=== PATIENT | female | born 1995 | race Caucasian/White ===

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

== ENCOUNTER → 2021-06-01 | Outpatient (CLI) | payer BC ==
[~2021-06-01] MED LIST changes: +NORCO 325 MG-51 TAB PO; +PERCOCET 325 MG1 TA2 PO; +ZOFRAN ODT4 MG PO
== END ==
LOC: COL.RAD 07:00
DX: G44.89 Other headache syndrome (principal); H53.9 Unspecified visual disturbance

== ENCOUNTER 2021-07-28 13:19 | Emergency (ER) | payer BC ==
[~2021-07-28] VITALS: Ht 180.3 cm; Wt 84.1 kg
[~2021-07-28 13:19] MED LIST changes: -NORCO 325 MG-51 TAB PO; -PERCOCET 325 MG1 TA2 PO; -ZOFRAN ODT4 MG PO
[2021-07-28 15:11] VITALS: TEMP 98.3
[2021-07-28 16:41] LABS: BASO % 0.3 % (0.0-2.0); EOS # 0.1 K/mm3 (0.0-0.7); EOS % 0.9 % (0-4.0); GRAN # 7.6 K/mm3 (1.4-6.5); GRAN % 80.5 % (42.2-75.2); HEMATOCRIT 39.6 % (37.0-47.0); HEMOGLOBIN 13.2 g/dl (12.5-16.0); LYMPH # 1.3 K/mm3 (1.2-3.4); LYMPH % 13.5 % (20.0-51.0); MEAN CELL VOLUME 92 fl (80.0-100.0); MEAN CORPUSCULAR HEMOGLOBIN 31 pg (27.0-31.0); MEAN CORPUSCULAR HGB CONC 33 g/dl (33.0-37.0); MEAN PLATELET VOLUME 9.7 fl (7.4-10.4); MONO # 0.4 K/mm3 (0.1-0.6); MONO % 4.4 % (1.7-9.3); PLATELET COUNT 230 K/mm3 (130-400); RED BLOOD COUNT 4.32 M/mm3 (4.10-5.30); REDCELL DISTRIBUTION WIDTH-CV 11.6 % (11.5-14.5)
[2021-07-28 16:54] LABS: ALBUMIN 3.9 gm/dL (3.5-5.0); BILIRUBIN,TOTAL 0.6 mg/dL (0.2-1.2); C-REACTIVE PROTEIN 0.16 mg/dL (0.00-0.50); CALCIUM 9.4 mg/dL (8.4-10.2); CREATININE, serum 0.72 mg/dL (0.57-1.11); POTASSIUM 3.7 mmol/L (3.5-4.5); TOTAL PROTEIN 6.2 gm/dL (6.2-8.1)
[2021-07-28 18:50] VITALS: BP 120/65; PULSE 71
[2021-07-29] MEDS ORDERED: NORCO 325 MG-51 TAB PO (23:16)
[2021-07-29] MEDS ORDERED: ZOFRAN ODT4 MG PO (23:16)
[2021-07-30] MEDS ORDERED: ZOFRAN ODT4 MG PO (00:20)
[2021-07-30] MEDS ORDERED: PERCOCET 325 MG1 TA2 PO (00:20)
== END 2021-07-28 18:50 | disposition home or self-care (01) ==
LOC: COL.ER 13:19
PROVIDERS: Nurse Practitioner
DX: G97.1 Other reaction to spinal and lumbar puncture (principal); R51.9 Headache, unspecified
CPT/HCPCS: J2405; J7030

== ENCOUNTER → 2021-09-13 | Outpatient (CLI) | payer BC ==
[~2021-09-13] MED LIST changes: +NORCO 325 MG-51 TAB PO; +PERCOCET 325 MG1 TA2 PO; +ZOFRAN ODT4 MG PO
== END ==
LOC: SDCO 13:00
DX: G43.019 Migraine without aura, intractable, without status migrainosus (principal)

== ENCOUNTER → 2024-01-02 | Outpatient (CLI) | payer OTHER ==
[~2024-01-02] MED LIST changes: +Gadoterate 5 ML VIAL IV ONE; +Iohexol 300 - 10 ML VIAL IV ONE
== END ==
LOC: COL.RAD 09:11
DX: M25.512 Pain in left shoulder (principal)
CPT/HCPCS: A9575; Q9967